=== PATIENT | male | born 2000 | race Caucasian/White ===

== ENCOUNTER 2019-12-02 06:24 | Emergency (ER) | payer SELFPAY ==
[~2019-12-02] VITALS: Ht 177.8 cm; Wt 81.6 kg
[~2019-12-02 06:24] MED LIST: LORA10CA PO; MULT-608 PO; NEOM28.34 TP; [UNRECOGNIZED DRUG - OTHER] PO
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
[2019-12-02 07:08] VITALS: BP 124/84
== END 2019-12-02 07:05 | disposition home or self-care (01) ==
LOC: EDUNIT# 06:24 → ER FS 06:36
DX: S51.012A Laceration without foreign body of left elbow, initial encounter (principal); V86.01XA Driver of ambulance or fire engine injured in traffic accident, initial encounter